=== PATIENT | male | born 1975 | race American Indian/Alaskan Native ===

== ENCOUNTER 2020-08-21 10:23 | Emergency (ER) | payer BC, OTHER ==
--- NOTE | 2020-08-21 11:15 | EDM.PDOC ---
ED HPI GENERAL MEDICAL PROBLEM - General Chief Complaint: Chest Pain Stated Complaint: CHEST PAIN/SOB Time Seen by Provider: 08/21/20 11:03 Source of Information: Reports: Patient, RN Notes Reviewed History Limitations: Reports: No Limitations - History of Present Illness INITIAL COMMENTS - FREE TEXT/NARRATIVE: Patient is a 45-year-old male who presents to the ED for the evaluation of his mid central chest discomfort. 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 States that he takes Viibryd for his depression and anxiety. His primary care provider is located in [place]. Patient notes that he has had increased stress at home, and stressed throughout the weekend, he notes that his parents are fighting, and multiple other things. States he was talking to his team today, when he had sudden onset difficulty breathing, chest discomfort, just to the left of his chest. Patient does have a history of anxiety, and feels like this is similar to his panic attacks in the past. He has had no sick-like symptoms, and denies any fevers or chills, cough, nausea/vomiting/diarrhea, he had no sort of diaphoresis with the episode. He notes that he sat down, and after a few breathing exercises, he felt better. Headache Pain Score (Numeric/FACES): 8 - Related Data Allergies Allergy/AdvReac Type Severity Reaction Status Date / Time Penicillins Allergy Cannot Verified 08/21/20 10:31 Remember Home Meds: Home Meds LORazepam [Ativan] 1 mg PO TID PRN #12 tab 08/21/20 [Rx] Metoprolol Succinate [Toprol XL] 25 mg PO DAILY 08/21/20 [History] Vilazodone HCl [Viibryd] 40 mg PO 08/21/20 [History] metFORMIN [Glucophage] 1,000 mg PO BIDMEALS 08/21/20 [History] Past Medical History HEENT History: Reports: None Cardiovascular History: Reports: Hypertension Respiratory History: Reports: None Gastrointestinal History: Reports: None Genitourinary History: Reports: None Musculoskeletal History: Reports: Back Pain, Chronic Neurological History: Reports: Concussion Psychiatric History: Reports: Anxiety, Depression Endocrine/Metabolic History: Reports: Diabetes, Type II Hematologic History: Reports: None Immunologic History: Reports: None Oncologic (Cancer) History: Reports: None Dermatologic History: Reports: None - Infectious Disease History Infectious Disease History: Reports: Chicken Pox, Novel Coronavirus - Past Surgical History Head Surgeries/Procedures: Reports: None HEENT Surgical History: Reports: None Social & Family History - Family History Family Medical History: No Pertinent Family History Cardiac: Reports: CAD : Reports: Renal Disease/Insufficiency Endocrine/Metabolic: Reports: Diabetes, type II, Hypothyroidism Oncologic: Reports: Other (See Below) Other Oncologic Family History: gallbladder - Tobacco Use Tobacco Use Status *Q: Never Tobacco User - Caffeine Use Caffeine Use: Reports: Soda - Recreational Drug Use Recreational Drug Use: No ED ROS GENERAL - Review of Systems Review Of Systems: Comprehensive ROS is negative, except as noted in HPI. ED EXAM, GENERAL - Physical Exam Exam: See Below Exam Limited By: No Limitations General Appearance: Alert, WD/WN, No Apparent Distress Respiratory/Chest: No Respiratory Distress, Lungs Clear, Normal Breath Sounds, No Accessory Muscle Use, Chest Non-Tender Cardiovascular: Normal Peripheral Pulses, Regular Rate, Rhythm, No Edema Peripheral Pulses: 2+: Radial (L), Radial (R) GI/Abdominal: Normal Bowel Sounds, Soft, Non-Tender, No Distention, No Mass Extremities: Normal Inspection, Normal Capillary Refill Neurological: Alert, Oriented, Normal Cognition, No Motor/Sensory Deficits Psychiatric: Normal Affect, Normal Mood Skin Exam: Warm, Dry, Intact, Normal Color, No Rash #1 Interpretation EKG Date: 08/21/20 Time: 10:29 Rhythm: NSR Rate (Beats/Min): 95 Hondo: LAD-Left Hondo Deviation (-81 ) P-Wave: Present QRS: Normal ST-T: Normal QT: Prolonged (Mildly prolonged QTC at 477) Comparison: NA - No Prior EKG EKG Interpretation Comments: No obvious ischemia or acute ST changes noted, reviewed by myself and Dr. Archer. Course - Vital Signs Last Recorded V/S: Last Vital Signs Temp 97.1 F 08/21/20 10:37 Pulse 93 08/21/20 10:37 Resp 16 08/21/20 10:37 BP 188/117 H 08/21/20 10:37 Pulse Ox 99 08/21/20 10:37 - Orders/Labs/Meds Orders: Active Orders 24 hr Category Date Time Status EKG 12 Lead [EKG Documentation Completion] [RC] STAT Care 04/11/21 10:46 Active Glucose [Blood Glucose Check, Bedside] [RC] ONETIME Care 08/21/20 12:19 Active Labs: Laboratory Tests 08/21/20 08/21/20 08/21/20 Range/Units 10:31 10:31 10:31 WBC 10.37 H (4.23-9.07) K/mm3 RBC 5.87 (4.63-6.08) M/mm3 Hgb 16.2 (13.7-17.5) gm/dl Hct 48.2 (40.1-51.0) % MCV 82.1 (79.0-92.2) fl MCH 27.6 (25.7-32.2) pg MCHC 33.6 (32.2-35.5) g/dl RDW Std Deviation 42.2 (35.1-43.9) fL Plt Count 268 (163-337) K/mm3 MPV 10.7 (9.4-12.3) fl Neut % (Auto) 56.7 (34.0-67.9) % Lymph % (Auto) 33.6 (21.8-53.1) % Thomas % (Auto) 6.3 (5.3-12.2) % Eos % (Auto) 2.1 (0.8-7.0) Baso % (Auto) 1.0 (0.1-1.2) % Neut # (Auto) 5.89 H (1.78-5.38) K/mm3 Lymph # (Auto) 3.48 (1.32-3.57) K/mm3 Thomas # (Auto) 0.65 (0.30-0.82) K/mm3 Eos # (Auto) 0.22 (0.04-0.54) K/mm3 Baso # (Auto) 0.10 H (0.01-0.08) K/mm3 Manual Slide Review Normal smear PT 10.4 (9.7-12.0) SECONDS INR 0.97 APTT 27.1 (21.7-31.4) SECONDS Sodium 140 (136-145) mEq/L Potassium 3.5 (3.5-5.1) mEq/L Chloride 101 (98-107) mEq/L Carbon Dioxide 25 (21-32) mEq/L Anion Gap 17.5 H (5-15) BUN 12 (7-18) mg/dL Creatinine 0.8 (0.7-1.3) mg/dL Est Cr Clr Drug Dosing 129.33 mL/min Estimated GFR (MDRD) > 60 (>60) mL/min BUN/Creatinine Ratio 15.0 (14-18) Glucose 277 H (74-106) mg/dL POC Glucose (70-105) mg/dL Calcium 8.4 L (8.5-10.1) mg/dL Magnesium 2.1 (1.8-2.4) mg/dl Total Bilirubin 1.1 H (0.2-1.0) mg/dL AST 57 H (15-37) U/L ALT 90 H (16-63) U/L Alkaline Phosphatase 134 H (46-116) U/L Troponin I 0.045 (0.00-0.056) ng/mL Total Protein 9.0 H (6.4-8.2) g/dl Albumin 3.7 (3.4-5.0) g/dl Globulin 5.3 gm/dL Albumin/Globulin Ratio 0.7 L (1-2) 08/21/20 08/21/20 Range/Units 13:10 13:45 WBC (4.23-9.07) K/mm3 RBC (4.63-6.08) M/mm3 Hgb (13.7-17.5) gm/dl Hct (40.1-51.0) % MCV (79.0-92.2) fl MCH (25.7-32.2) pg MCHC (32.2-35.5) g/dl RDW Std Deviation (35.1-43.9) fL Plt Count (163-337) K/mm3 MPV (9.4-12.3) fl Neut % (Auto) (34.0-67.9) % Lymph % (Auto) (21.8-53.1) % Thomas % (Auto) (5.3-12.2) % Eos % (Auto) (0.8-7.0) Baso % (Auto) (0.1-1.2) % Neut # (Auto) (1.78-5.38) K/mm3 Lymph # (Auto) (1.32-3.57) K/mm3 Thomas # (Auto) (0.30-0.82) K/mm3 Eos # (Auto) (0.04-0.54) K/mm3 Baso # (Auto) (0.01-0.08) K/mm3 Manual Slide Review PT (9.7-12.0) SECONDS INR APTT (21.7-31.4) SECONDS Sodium (136-145) mEq/L Potassium (3.5-5.1) mEq/L Chloride (98-107) mEq/L Carbon Dioxide (21-32) mEq/L Anion Gap (5-15) BUN (7-18) mg/dL Creatinine (0.7-1.3) mg/dL Est Cr Clr Drug Dosing mL/min Estimated GFR (MDRD) (>60) mL/min BUN/Creatinine Ratio (14-18) Glucose (74-106) mg/dL POC Glucose 205 H (70-105) mg/dL Calcium (8.5-10.1) mg/dL Magnesium (1.8-2.4) mg/dl Total Bilirubin (0.2-1.0) mg/dL AST (15-37) U/L ALT (16-63) U/L Alkaline Phosphatase (46-116) U/L Troponin I 0.042 (0.00-0.056) ng/mL Total Protein (6.4-8.2) g/dl Albumin (3.4-5.0) g/dl Globulin gm/dL Albumin/Globulin Ratio (1-2) Meds: Medications Discontinued Medications Generic Name Dose Route Start Last Admin Trade Name Freq PRN Reason Stop Dose Admin Sodium Chloride 1,000 mls @ 999 mls/hr 08/21/20 11:41 08/21/20 11:57 Normal Saline IV 08/21/20 12:41 999 mls/hr ONETIME ONE Administration Lorazepam 1 mg 08/21/20 11:57 08/21/20 12:34 Lorazepam 2 Mg/Ml Sdv IVPUSH 08/21/20 11:58 1 mg ONETIME ONE Administration - Re-Assessments/Exams Free Text/Narrative Re-Assessment/Exam: 08/21/20 11:14 Patient presents to the ER for his chest discomfort. After speaking with the patient, highly suspect an anxiety or panic attack. EKG was done at time of triage, demonstrates no acute ST abnormalities. We will go ahead and get some basic labs for further evaluation and have him hopefully follow-up with his regular doctor for ongoing anxiety. Plan is to hopefully send him home with a small prescription of Ativan so he can get an appointment scheduled with his primary care provider, patient verbalized understanding and agreed with the plan. 08/21/20 11:42 The patient's labs have resulted, CBC demonstrates a mildly elevated white count at 10, which is likely a stress response. CMP is impressive for a mildly elevated anion gap at 17.5, glucose is 277, he has mildly elevated LFTs and bilirubin, and his troponin is within normal limits, but is 0.045 at this time. Due to his blood sugar being a little bit high, we will go ahead and give him a bag of fluids to help relieve some of this. Of note patient blood pressure has been somewhat high throughout his stay here it has been 180s when he arrived, but is now down to 160 systolically. Patient not complaining of any chest pain at this time, we will go ahead and monitor symptoms. 08/21/20 13:54 Repeat troponin is down to 0.042, blood sugar is 205. Patient notes that he is not currently taking his metoprolol as he reacted pretty hard with some of the side effects. He has an appointment with his primary care provider this week to discuss ongoing blood pressure management. I did tell him to check his blood sugars at least 2 times a day for the next few days until he can see his primary care provider and then discuss his blood sugars with him as well. Patient verbalized understanding. He notes that he did feel better with the Ativan that was given. We will go ahead and discharge him home with general recommendations. Departure - Departure Time of Disposition: 13:55 Disposition: Home, Self-Care 01 Condition: Good Clinical Impression: Anxiety as acute reaction to exceptional stress Prescriptions: LORazepam [Ativan] 1 mg PO TID PRN #12 tab PRN Reason: Anxiety Instructions: Nonspecific Chest Pain, Adult, Rlco-or-Uipy, Generalized Anxiety Disorder, Adult Forms: ED Department Discharge Additional Instructions: You were seen in this ER today for your chest discomfort. You had EKG, and labs taken at today's visit. EKG demonstrated no acute abnorm alities you are not suffering from a heart attack at today's visit. You did get 1 dose of IV Ativan, for suspected anxiety and this seemed to help relieve most your symptoms. Your blood sugar was identified to be somewhat high, in the 200s when you were in the ER, and you received 1 bag of fluids for this and this did lower your blood sugar to a more acceptable level before discharge. Please take your blood sugar at home, at least 2 times a day, to discuss with your primary care provider at your coming appointment this week, to see if you would need a change in your blood pressure medications. If you have access to a blood pressure monitor, please try to monitor your blood pressure at home as well 2 times a day and keep a diary of this to see what your blood pressures are doing. Your prescription for Ativan, will be 1 tablet 3 times a day as needed for feelings of anxiety. Your prescription was electronically sent to [facility] pharmacy located near [facility], this pharmacy is only open from 12 to 4 PM on Sundays, you will need to go there during this timeframe to obtain this medication and take as prescribed. Please return to the ER at any time if symptoms change or worsen. Sepsis Event Note (ED) - Evaluation Sepsis Screening Result: No Definite Risk - Focused Exam Vital Signs: Vital Signs Temp Pulse Resp BP Pulse Ox 08/21/20 10:37 97.1 F 93 16 188/117 H 99 - My Orders Last 24 Hours: My Active Orders 08/21/20 10:46 EKG 12 Lead [EKG Documentation Completion] [RC] STAT 08/21/20 12:19 Glucose [Blood Glucose Check, Bedside] [RC] ONETIME - Assessment/Plan Last 24 Hours: My Active Orders 08/21/20 10:46 EKG 12 Lead [EKG Documentation Completion] [RC] STAT 08/21/20 12:19 Glucose [Blood Glucose Check, Bedside] [RC] ONETIME
[2020-08-21] MEDS ORDERED: Sodium Chloride 0.9% 1,000 ML IV ONE (11:41)
[2020-08-21] MEDS ORDERED: LORazepam 2 MG/ML SDV IVPUSH ONE (11:57)
== END 2020-08-21 14:07 | disposition home or self-care (01) ==
LOC: JD.ED 10:23
DX: F41.1 Generalized anxiety disorder (principal); F43.0 Acute stress reaction; I10 Essential (primary) hypertension; E11.9 Type 2 diabetes mellitus without complications; Z88.0 Allergy status to penicillin; Z79.84 Long term (current) use of oral hypoglycemic drugs; Z79.899 Other long term (current) drug therapy
CPT/HCPCS: 36415; 80053; 82962; 83735; 84484; 85025; 85610; 85730; 93005; 96374; 99283; J2060; J7030; 93010; 99284